=== PATIENT | female | born 1940 | race Caucasian/White ===

== ENCOUNTER 2017-11-15 09:52 | Inpatient (IN) | payer MEDICARE ==
[~2017-11-15] VITALS: Ht 162.6 cm; Wt 94.0 kg
[2017-11-15] VITALS (11 sets, daily range): BP systolic 71–143; BP diastolic 36–71; PULSE 64–82; RESP 9–22; TEMP 97.7–98.2; O2SAT 92–100
[~2017-11-15 09:52] MED LIST: 1-ME1LIQ PO; ALPR1 PO; AMLO10TA2 PO; BACL10TA PO; CITA20TA4 PO; CLON0.2T PO; CLON0.5T PO; DICL75TA PO; DULO1CAP2 PO; FENO145T2 PO; FERR325T18 PO; FURO20TA PO; GABA300C5 PO; HYOS1TAB9 PO; LIOT5 PO; LISI-515 PO; METO50TA PO; MORP1TAB25 PO; OMEGCAP PO; OXYC5 PO; PERC5TAB12 PO; PROBCAP11 PO; PROM25SU8 PO; PROM25TA10 PO; RANI150 PO; RANI150T PO; SERU1POW PO; SYNT112T PO; TRAZ100 PO
[2017-11-15] MEDS ORDERED: Vancomycin Consult Pharmacy 1 EA OTHER SCH (12:45)
[2017-11-15] MEDS ORDERED: CHLORHEXIDINE GLUCONATE 2 % 1 PACK (2 CLOTHS) TOP PRN (12:45)
[2017-11-15] MEDS ORDERED: MAGNESIUM HYDROXIDE SUSP 30 ML CUP PO PRN (12:45)
[2017-11-15] MEDS ORDERED: MISCELLANEOUS NURSING INFORMATION XX SCH (12:45)
[2017-11-15] MEDS ORDERED: SODIUM CHLORIDE 0.9% FLUSH 10 ML FLUSH IV FLUSH PRN (12:45)
[2017-11-15] MEDS ORDERED: RESP: ALBUTEROL 2.5 MG/IPRATROPIUM 0.5 MG NEB (PRN) INH (12:45)
[2017-11-15] MEDS ORDERED: DEXTROSE 50% IN WATER 50 ML VIAL(D50) IV PUSH PRN (12:45)
[2017-11-15] MEDS ORDERED: BISACODYL 10 MG SUPP RECTAL PRN (12:45)
[2017-11-15] MEDS ORDERED: GLUCAGON 1 MG/ML VIAL OTHER PRN (12:45)
[2017-11-15] MEDS ORDERED: SENNOSIDES 8.6 MG TAB PO PRN (12:45)
[2017-11-15] MEDS ORDERED: LACTULOSE SYRUP 20 GM/30 ML CUP PO PRN (12:45)
[2017-11-15] MEDS ORDERED: LIDOCAINE 1%/EPINEPHrine 1:100,000 SOLN 30 ML VIAL ONE (12:51)
--- NOTE | 2017-11-15 13:56 | HHI.HP ---
[facility] Service Critical Care Medicine Primary Care Physician Unknown Admission Diagnosis Diagnosis: (1) Anemia Diagnosis: Principal (2) Hypotension Diagnosis: Principal (3) Acute upper GI bleed Diagnosis: Principal Travel History International Travel<30 Days: No Contact w/Intl Traveler <30 Da: No Sepsis Criteria Severe Sepsis (+one): Hypotension History of Present Illness This is a 67-year-old female that presented to [facility] secondary to coffee- ground emesis 2 days. The patient normally takes diclofenac and occasionally aspirin as needed. The patient initial hemoglobin was noted to be 9.3 . No further episodes of hematemesis in the last 24 hours, Hemoccult studies pending. Patient was noted to be hypotensive the patient was bolused with IV fluids normal saline continued at 125 cc/hour. The patient required initiation of Levophed to maintain a mean arterial pressure greater than 65. Upon admission to ICU the patient was noted to have variable blood pressures and arterial line was placed the patient continues on normal saline 125cc/hr denying abdominal pain. The patient's medical history is significant for hypertension however she is hypotensive and creatinine was noted to be 2.4 unknown baseline, ROC possibly secondary to hypotension. Review of Systems Constitutional: COMPLAINS OF: Fatigue Musculoskeletal: COMPLAINS OF: Joint pain Past Family Social History Allergies: Coded Allergies: adhesive (Unverified Allergy, Severe, Rash, 03/16/17) simvastatin (Unverified Allergy, Severe, 03/16/17) topiramate (Unverified Allergy, Severe, N/V, 03/16/17) Sulfa (Sulfonamide Antibiotics) (Unverified Allergy, Unknown, 03/16/17) Uncoded Allergies: STATINS (Allergy, Severe, N/V, 07/22/11) Past Medical History Hypertension, recent chest cold/pneumonia Past Surgical History Unable to obtain Reported Medications Reviewed Active Ordered Medications See MAR Family History Unable to obtain secondary to patient's lethargy and malaise Social History The patient is , denies EtOH, illicit drug use and smoking Physical Exam Physical Exam GENERAL: This is a well-developed well-nourished female with increased BMI, coffee-ground emesis dry in the circumoral region of face SKIN: Warm and dry. HEAD: Atraumatic. Normocephalic. EYES: Pupils equal and round. No scleral icterus. No injection or drainage. ENT: No nasal bleeding or discharge. Mucous membranes pink and moist. NECK: Trachea midline. No JVD. CARDIOVASCULAR: Normal rate, regular rhythm. RESPIRATORY: No accessory muscle use. Coarse rhonchi auscultated throughout lung field. Breath sounds equal bilaterally. GASTROINTESTINAL: Abdomen soft, non-tender, obese, nondistended. No guarding. Bowel sounds present MUSCULOSKELETAL: Extremities without clubbing, cyanosis, or edema. No obvious deformities. NEUROLOGICAL: GCS 15 .awake and alert. RASS 0. No gross focal/sensory deficits. Follows commands in all 4 extremities. Laboratory Laboratory Tests Test 11/15/17 13:18 Date/Time Source Procedure Growth Status 11/15/17 13:18 Blood Peripheral Aerobic Blood Culture Pending Received 11/15/17 13:18 Blood Peripheral Anaerobic Blood Culture Pending Received Septic Shock Reassessment Septic shock perfusion: reassessment completed Caprini VTE Risk Assessment Caprini VTE Risk Assessment: No/Low Risk (score <= 1) VTE Pharm Contraindication: Hemorrhage Caprini Risk Assessment Model Point Value = 1 Point Value = 2 Point Value = 3 Point Value = 5 Age 41-60 Minor surgery BMI > 25 kg/m2 Swollen legs Varicose veins or History of unexplained or recurrent spontaneous Oral contraceptives or hormone replacement Sepsis (< 1 month) Serious lung disease, including pneumonia (< 1 month) Abnormal pulmonary function Acute myocardial infarction Congestive heart failure (< 1 month) History of inflammatory bowel disease Medical patient at bed rest Age 61-74 Arthroscopic surgery Major open surgery (> 45 min) Laparoscopic surgery (> 45 min) Malignancy Confined to bed (> 72 hours) Immobilizing plaster cast Central venous access Age >= 75 History of VTE Family history of VTE Factor V Leiden Prothrombin [id number] Lupus anticoagulant Anticardiolipin antibodies Elevated serum homocysteine Heparin-induced thrombocytopenia Other congenital or acquired thrombophilia Stroke (< 1 month) Elective arthroplasty Hip, pelvis, or leg fracture Acute spinal cord injury (< 1 month) Prophylaxis Regimen Total Risk Factor Score Risk Level Prophylaxis Regimen 0-1 Low Early ambulation 2 Moderate Order ONE of the following: *Sequential Compression Device (SCD) *Heparin 5000 units SQ BID 3-4 Higher Order ONE of the following medications: *Heparin 5000 units SQ TID *Enoxaparin/Lovenox 40 mg SQ daily (WT < 150 kg, CrCl > 30 mL/min) *Enoxaparin/Lovenox 30 mg SQ daily (WT < 150 kg, CrCl > 10-29 mL/min) *Enoxaparin/Lovenox 30 mg SQ BID (WT < 150 kg, CrCl > 30 mL/min) AND/OR *Sequential Compression Device (SCD) 5 or more Highest Order ONE of the following medications: *Heparin 5000 units SQ TID (Preferred with Epidurals) *Enoxaparin/Lovenox 40 mg SQ daily (WT < 150 kg, CrCl > 30 mL/min) *Enoxaparin/Lovenox 30 mg SQ daily (WT < 150 kg, CrCl > 10-29 mL/min) *Enoxaparin/Lovenox 30 mg SQ BID (WT < 150 kg, CrCl > 30 mL/min) AND *Sequential Compression Device (SCD) Assessment and Plan Problem List: (1) Anemia ICD Code: D64.9 - Anemia, unspecified Status: Acute (2) Hypotension ICD Code: I95.9 - Hypotension, unspecified Status: Acute (3) Acute upper GI bleed ICD Code: K92.2 - Gastrointestinal hemorrhage, unspecified Status: Acute Assessment and Plan Assessment This is a 77-year-old female with chronic history of ingestion of NSAIDs secondary to arthritic pain to include diclofenac and aspirin, that presented to [facility] ED with hematemesis. Patient in the last 24 hours has become hypotensive, and anemic. Admit to ICU. Plan Plan by systems: Neurologic: Chronic pain Neuro checks per ICU protocol Avoid sedative type medication Tylenol every 6 hours as needed Respiratory: Possible pneumonia Maintain O2 sat greater than 92% Chest x-ray reveal left basilar density Empiric antibiotics as shown below 11/15 chest x-ray-left lower lobe opacity Chest x-rays and ABGs when clinically indicated Duo nebs every 4 hours as needed for wheezing Cardiovascular: Hypotension Patient with history of hypertension Hold antihypertensive medications currently for SBP 140mmHg Insert arterial line-we will closely monitor vasopressors may be indicated Renal: [ ] -- Strict I/Os FEN/GI: Upper GI bleed Hematemesis Maintain NPO status GI consulted discussed with Dr. Alistair Farley for nausea Protonix twice daily Bowel regimen Heme/ID: Anemia Leukocytosis Monitor hemoglobin every 6 hours Obtain sputum, blood and urine culture Empiric antibiotics-cefepime vancomycin, and azithromycin Endocrine: Glucose monitoring per ICU protocol -- SSI Prophylaxis: GI Prophylaxis Protonix BID DVT Prophylaxis -- SCDs No chemical DVT prophylaxis in the setting of upper GI bleed Lines: Peripheral IVs 2, right radial arterial line (11/15) Dispo: my billing statement This patient remains critically ill with one or more organ systems which are or may become a threat to life. I have spent in excess of 40 minutes discontinuously in the care and management of this patient. This time is exclusive of procedures, and includes, but is not limited to, evaluation of the patient, review of the medical record, discussions with family, consultants, nursing staff, or respiratory therapy, and documentation in the medical record. Code Status Full Discussed Condition With Dr. Sainz , patient and LUMBER PILER at bedside ([place]) Brigid Membreno MD Nov 15, 2017 13:56
--- NOTE | 2017-11-15 14:00 | PD.PROCEDR ---
Procedure Note Procedure Procedure: Arterial Line Placement Right radial artery Diagnosis: Hypotension Indications: Hypotension Consent: Patient Description of the Procedure: The right wrist was prepped and draped sterilely. 1% lidocaine was used for local anesthesia. The pulse was located and a needle was advanced into the artery. A 20 gauge, 1.34 cm catheter was advanced into the artery using a modified Seldinger technique. The catheter was sutured to the skin and a sterile dressing was applied. The catheter was connected to a pressure transducer and an arterial waveform was noted. There were no immediate complications noted. There was minimal EBL. I personally performed the procedure. Brigid Membreno MD Nov 15, 2017 14:00
--- NOTE | 2017-11-15 14:49 | PD.CONS ---
HPI History of Present Illness This is a 77 year old female who presented with coffee ground emesis that started early this morning. SHe is having some mild epigastric discomfort. She denies black tarry stool, yoana blood in emesis, prior hx gastric ulcers or GIB. She does admit occasional scant BRBPR and cites hx hemorrhoids. She did take diclofenac for back pain but has not had this in 5 months. Per her she takes 2 advil PM nightly. Her last colonoscopy was in [place] with Dr Hernandez and normal per pt. Pt is lethargic and poor historian, hx obtained from EMR and pts at bedside. (Elena Martinez) PFSH Past Medical History back pain neck pain HTN MARGA does not use mask Past Surgical History c section cholecystectomy back surgery neck surgery (Elena Martinez) Coded Allergies: adhesive (Unverified Allergy, Severe, Rash, 03/16/17) simvastatin (Unverified Allergy, Severe, 03/16/17) topiramate (Unverified Allergy, Severe, N/V, 03/16/17) Sulfa (Sulfonamide Antibiotics) (Unverified Allergy, Unknown, 03/16/17) Uncoded Allergies: STATINS (Allergy, Severe, N/V, 07/22/11) Family History unk Social History no toxic habits per pts (Elena Martinez) Review of Systems Gastrointestinal: COMPLAINS OF: Abdominal pain, Hematemesis otherwise noncontributory (Elena Martinez) GI Exam Laboratory Test 11/15/17 11:55 11/15/17 13:18 Lactic Acid Level 0.6 mmol/L Date/Time Source Procedure Growth Status 11/15/17 13:18 Blood Peripheral Aerobic Blood Culture Pending Received 11/15/17 13:18 Blood Peripheral Anaerobic Blood Culture Pending Received Physical Examination HEENT: PERRL; normocephalic; atraumatic; no jaundice. CHEST: CTA, snoring CARDIAC: irr HR ABDOMEN: Soft, obese, nontender; no hepatosplenomegaly; bowel sounds are present in all four quadrants. EXTREMITIES: No clubbing, cyanosis, or edema. SKIN: pale BUNDLE CUTTER: lethargic (Elena Martinez) Assessment and Plan Plan ASSESSMENT - coffee ground emesis - UGIB. daily advil use, was taking diclofenac 5 months ago. had EGD and colonoscopy 3y; EGD found reflux. can recall no abnormal findings on colonoscopy. no prior hx GIB. possibly she has ulcer - anemia - 2/2 above. hgb 9.3, symptomatic. pt hypotensive. - poss PNA, hyptension per [facility] PLAN - EGD when stable, will plan for tomorrow - obtain consent - NPO - monitor HH - transfuse as needed - PPI - further recs to follow pt seen by myself and Dr Sainz and this note is on her behalf (Elena Martinez) Physician Comments seen, examined agree with above ct abdomen/pelvis egd in am unless active bleeding , than will be done on emergency (Jaki Sainz MD) Elena Martinez Nov 15, 2017 14:49 Jaki Sainz MD Nov 15, 2017 16:29
[2017-11-15] MEDS: AZITHROMYCIN INJ 500 MG in SODIUM CHLOR 0.9% 250 ML INJ 250 ML IV SCH (15:13)
[2017-11-15] MEDS: SODIUM CHLOR 0.9% 1000 ML INJ 1,000 ML IV SCH ×2 (15:13→20:23)
[2017-11-15] MEDS ORDERED: DIATRIZOATE MEGLUM/DIATRIZOATE SOD 9 ML CUP PO ONE (17:00)
[2017-11-15] MEDS ORDERED: VANCOMYCIN INJ 1,750 MG in SODIUM CHLORID 0.9% 500 ML INJ 500 ML IV ONE (17:00)
[2017-11-15] MEDS: INSULIN ASPART SUPPLEMENTAL SCALE SQ SCH ×2 (17:00→20:23)
[2017-11-15] MEDS: CEFEPIME INJ 2,000 MG in SODIUM CHLORIDE 0.9% INJ 100 ML IV SCH (17:39)
[2017-11-15] MEDS: ONDANSETRON HCL 4 MG/2 ML VIAL IV PUSH PRN (18:45)
[2017-11-15] MEDS: SODIUM CHLORIDE 0.9% FLUSH 10 ML FLUSH IV FLUSH SCH (20:21)
[2017-11-15] MEDS: PANTOPRAZOLE SODIUM 40 MG VIAL IV PUSH SCH (20:23)
[2017-11-15] MEDS: DOCUSATE SODIUM 50 MG/SENNA 8.6 MG TAB PO SCH (20:23)
[2017-11-15 20:41] LABS: HEMATOCRIT 25.4 % (35.0-46.0); HEMOGLOBIN 8.2 GM/DL (11.6-15.3)
[2017-11-15] MEDS ORDERED: PROPOFOL 1000 MG/100 ML INJ 100 ML IV PRN (22:15)
[2017-11-15] MEDS ORDERED: fentaNYL DRIP 250 ML IV PRN (22:15)
[2017-11-15] MEDS ORDERED: ETOMIDATE 20 MG/10 ML VIAL IV PUSH ONE (22:15)
[2017-11-15] MEDS ORDERED: ROCURONIUM INJ 50 MG/5 ML VIAL IV ONE (22:15)
[2017-11-15] MEDS ORDERED: ETOMIDATE 40 MG/20 ML VIAL ONE (22:17)
[2017-11-15] MEDS ORDERED: PROPOFOL 500 MG/50 ML INJ 50 ML ONE (22:19)
--- NOTE | 2017-11-15 22:44 | PD.PROCEDR ---
Procedure Note Procedure DATE: 11/15/2017 PROCEDURE: Orotracheal intubation INDICATION: Respiratory failure/tachypnea DETAILS OF PROCEDURE The patient was placed in optimal position and preoxygenated with 100% FiO2 via bag valve mask. At the start oxygen saturation was 95%. The patient was administered 20 milligrams etomidate IV and 50 milligrams rocuronium IV. I entered the oropharynx with a size 4 GVL glidescope blade and obtained a grade 2 view of the airway. On single attempt a size 8.0 cuffed endotracheal tube was passed through the vocal cords. Correct tube location was confirmed with end tidal CO2 detector and by auscultating over bilateral lung recinos. The endotracheal tube was secured with adhesive tape at a depth of 24 cm at the lips. The patient was connected to the ventilator. The patient tolerated the procedure well without any apparent complications. Oxygen saturations were maintained greater than 95% all times. STAT chest x-ray pending at time of dictation. Chris Galeana MD Nov 15, 2017 22:44
--- NOTE | 2017-11-15 22:50 | RADRPT ---
EXAM DATE/TIME: 11/15/2017 23:33 [facility] COMPARISON: CHEST SINGLE AP, November 15, 2017, 9:11. INDICATIONS : Evaluate intubation MEDICAL HISTORY : Hypertension. SURGICAL HISTORY : Tubal ligation. Fusion, cervical. ENCOUNTER: Subsequent ACUITY: 1 day PAIN SCORE: Non-responsive. LOCATION: chest FINDINGS: The ET tube and NG tube are well placed. The heart size is normal. There is minimal increased density at the lateral left base. The right lung is clear. Surgical screws are seen in the lower cervical sp ine.. CONCLUSION: Mild patchy consolidation or atelectasis at the lateral left lung base. Cesar Rodriguez MD on November 15, 2017 at 22:47 Board Certified Radiologist. This report was verified electronically.
[2017-11-16] VITALS (18 sets, daily range): BP systolic 83–160; BP diastolic 50–94; PULSE 68–102; RESP 16–20; TEMP 97.5–100.4; O2SAT 94–100
[2017-11-16 01:36] LABS: HEMATOCRIT 23.5 % (35.0-46.0); HEMOGLOBIN 7.9 GM/DL (11.6-15.3)
[2017-11-16 02:27] LABS: BILIRUBIN, URINE NEG (NEG); BLOOD, URINE TRACE (NEG); GLUCOSE,URINE NEG (NEG); KETONE, URINE NEG (NEG); MUCUS URINE FEW /lpf (OCC); NITRITE,URINE NEG (NEG); SQUAMOUS EPITHELIAL CELL URINE 1 /hpf (0-5); URINE COLOR YELLOW (YELLW/STRAW); URINE LEUKOCYTE ESTERASE NEG (NEG)
--- NOTE | 2017-11-16 03:39 | RADRPT ---
EXAM DATE/TIME: 11/16/2017 02:52 [facility] COMPARISON: No previous studies available for comparison. INDICATIONS : Abdominal distention. ORAL CONTRAST: Prescribed oral contrast ingested. RADIATION DOSE: 22.06 CTDIvol (mGy) MEDICAL HISTORY : Hypertension. Hernia, hiatal. SURGICAL HISTORY : Cholecystectomy. ENCOUNTER: Initial ACUITY: 1 day PAIN SCALE: Non-responsive LOCATION: abdomen TECHNIQUE: Volumetric scanning of the abdomen and pelvis was performed. Using automated exposure control and ad justment of the mA and/or kV according to patient size, radiation dose was kept as low as reasonably achievable to obtain optimal diagnostic quality images. DICOM format image data is available electro nically for review and comparison. FINDINGS: LOWER LUNGS: Left base consolidation with associated volume loss noted. LIVER: Homogeneous density without lesion. There is no dilation of the biliary tree. No calcified gallston es. SPLEEN: Normal size without lesion. PANCREAS: Within normal limits. KIDNEYS: Normal in size and shape. There is no mass, stone, or hydronephrosis. ADRENAL GLANDS: Within normal limits. VASCULAR: There is no aortic aneurysm. BOWEL/MESENTERY: Moderate stool throughout the colon. Nonobstructive pattern. No perceptible mass or inflammatory castrejon ges. Normal appendix. ABDOMINAL WALL: Within normal limits. RETROPERITONEUM: There is no lymphadenopathy. BLADDER: Danielle present. REPRODUCTIVE: Within normal limits. INGUINAL: There is no lymphadenopathy or hernia. MUSCULOSKELETAL: Within normal limits for patient age. CONCLUSION: 1. No obstruction or acute inflammatory changes. Moderate stool throughout the colon. 2. Dense consolidative changes of the left lung base with volume loss. Cesar Feliciano MD on November 16, 2017 at 3:35 Board Certified Radiologist. This report was verified electronically.
[2017-11-16] MEDS: CHLORHEXIDINE GLUCONATE 2 % 1 PACK (2 CLOTHS) TOP SCH (04:00)
[2017-11-16 05:35] LABS: AUTOMATED NEUTROPHIL # 7.4 TH/MM3 (1.8-7.7); BASOPHIL % 0.5 % (0.0-2.0); EOSINOPHIL # 0.2 TH/MM3 (0-0.4); EOSINOPHIL % 2.1 % (0.0-4.0); HEMOGLOBIN 7.7 GM/DL (11.6-15.3); LYMPH % 13.4 % (9.0-44.0); LYMPHOCYTE # 1.2 TH/MM3 (1.0-4.8); MEAN CELL VOLUME 87.7 FL (80.0-100.0); MEAN CORPUSCULAR HEMOGLOBIN 29.2 PG (27.0-34.0); MEAN CORPUSCULAR HGB CONC 33.3 % (32.0-36.0); MEAN PLATELET VOLUME 7.1 FL (7.0-11.0); MONOCYTE # 0.4 TH/MM3 (0-0.9); PLATELET COUNT 307 TH/MM3 (150-450); RED BLOOD COUNT 2.63 MIL/MM3 (4.00-5.30); RED CELL DISTRIBUTION WIDTH 15.6 % (11.6-17.2); WHITE BLOOD COUNT 9.3 TH/MM3 (4.0-11.0)
[2017-11-16 05:46] LABS: INTERNATIONAL NORMALIZED RATIO 1.1 RATIO
[2017-11-16] MEDS ORDERED: PROPOFOL 1000 MG/100 ML INJ 100 ML IV PRN (06:15)
[2017-11-16] MEDS: INSULIN ASPART SUPPLEMENTAL SCALE SQ SCH ×4 (08:00→20:48)
[2017-11-16] MEDS: CHLORHEXIDINE 0.12% (ORAL KIT) 15 ML CUP MT SCH ×2 (08:00→20:00)
--- NOTE | 2017-11-16 08:18 | RADRPT ---
EXAM DATE/TIME: 11/16/2017 07:53 [facility] COMPARISON: CT ABDOMEN & PELVIS W/O CONTRAST, November 16, 2017, 2:52. CHEST SINGLE AP, November 15, 2017, 23:33. INDICATIONS : Short of breath, cough, congestion MEDICAL HISTORY : GI bleed SURGICAL HISTORY : section. ENCOUNTER: Subsequent ACUITY: 2 days PAIN SCORE: 0/10 LOCATION: Bilateral chest FINDINGS: A single view of the chest demonstrates a liver of right lung clear. Heart upper limits of normal in size. The cardiomediastinal contours are unremarkable. Osseous structures are intact. CONCLUSION: Left basilar pneumonia. Clarke Araujo MD on November 16, 2017 at 8:15 Board Certified Radiologist. This report was verified electronically.
[2017-11-16] MEDS: SODIUM CHLORIDE 0.9% FLUSH 10 ML FLUSH IV FLUSH SCH ×2 (08:52→20:48)
[2017-11-16] MEDS: PANTOPRAZOLE SODIUM 40 MG VIAL IV PUSH SCH ×2 (08:53→20:48)
[2017-11-16] MEDS: DOCUSATE SODIUM 50 MG/SENNA 8.6 MG TAB PO SCH ×2 (08:54→20:48)
[2017-11-16 08:57] LABS: ALBUMIN 2.9 GM/DL (3.4-5.0); AST (GOT) 22 U/L (15-37); BICARBONATE 26.9 MEQ/L (21.0-32.0); BLOOD UREA NITROGEN 22 MG/DL (7-18); CHLORIDE 107 MEQ/L (98-107); GLOMERULAR FILTRATION RATE 37 ML/MIN (>89); GLUCOSE,RANDOM 90 MG/DL (74-106); SODIUM (NA) 143 MEQ/L (136-145)
[2017-11-16 09:02] LABS: ALKALINE PHOSPHATASE 41 U/L (45-117); ALT (GPT) 16 U/L (10-53); PHOSPHORUS 3.5 MG/DL (2.5-4.9); TOTAL BILIRUBIN ADULT 0.5 MG/DL (0.2-1.0); TOTAL PROTEIN 6.8 GM/DL (6.4-8.2)
[2017-11-16] MEDS: RESP: ALBUTEROL 2.5 MG/IPRATROPIUM 0.5 MG NEB (SCH) INH ×3 (09:07→21:32)
[2017-11-16] MEDS: ACETAMINOPHEN 325 MG TAB PO PRN ×2 (09:41→15:16)
--- NOTE | 2017-11-16 10:03 | HHI.CCPN ---
Subjective Remarks/Hospital Course This is a 67-year-old female that presented to [facility] secondary to coffee- ground emesis 2 days. The patient normally takes diclofenac and occasionally aspirin as needed. The patient initial hemoglobin was noted to be 9.3 . No further episodes of hematemesis in the last 24 hours, Hemoccult studies pending. Patient was noted to be hypotensive the patient was bolused with IV fluids normal saline continued at 125 cc/hour. The patient required initiation of Levophed to maintain a mean arterial pressure greater than 65. Upon admission to ICU the patient was noted to have variable blood pressures and arterial line was placed the patient continues on normal saline 125cc/hr denying abdominal pain. The patient's medical history is significant for hypertension however she is hypotensive and creatinine was noted to be 2.4 unknown baseline, ROC possibly secondary to hypotension. Subjective: 11/16: Overnight the patient was emergently intubated secondary to tactile vomiting and possible aspiration with hypoxia. Please refer to procedure note listed. This a.m. during daily sedation vacation, the patient self extubated. Currently patient on 2 L nasal cannula O2 saturation 99%. Patient alert and oriented. Chest x-ray continued left lower lobe pneumonia. Further inquiry we would Mr. Mckeon revealed patient has had a history of recurrent pneumonias over the last 3 months last hospitalized at [facility] for 8 days recently. ID has been consulted for further recommendations. Patient now hypertensive antihypertensive medications reinitiated after obtaining home medication list. Objective Vital Signs Date Time Temp Pulse Resp B/P (MAP) Pulse Ox O2 Delivery O2 Flow Rate FiO2 11/16/17 09:27 97 Nasal Cannula 2.00 11/16/17 09:05 100.4 102 18 142/73 11/16/17 04:52 40 Intake and Output 11/16/17 11/16/17 11/17/17 08:00 16:00 00:00 Intake Total 147 ml 60 ml Output Total 1150 ml Balance -1003 ml 60 ml Result Diagram: 11/16/17 0510 11/16/17 0758 Other Results Laboratory Tests Test 11/15/17 15:45 11/15/17 23:25 Blood Gas Puncture Site ART LINE ART LINE Blood Gas Patient Temperature 98.6 98.6 Blood Gas HCO3 26 mmol/L (22-26) 22 mmol/L (22-26) Blood Gas Base Excess 0.4 mmol/L (-2-2) -3.2 mmol/L (-2-2) Blood Gas Oxygen Saturation 96 % (90-100) 97 % (90-100) Arterial Blood pH 7.31 (7.380-7.420) 7.31 (7.380-7.420) Arterial Blood Partial Pressure CO2 53 mmHg (38-42) 45 mmHg (38-42) Arterial Blood Partial Pressure O2 121 mmHg (61-120) 405 mmHg (61-120) Arterial Blood Oxygen Content 12.9 Vol % (12.0-20.0) 18.5 Vol % (12.0-20.0) Arterial Blood Carboxyhemoglobin 1.0 % (0-4) 0.8 % (0-4) Arterial Blood Methemoglobin 1.2 % (0-2) 1.4 % (0-2) Blood Gas Hemoglobin 9.4 G/DL (12.0-16.0) 12.8 G/DL (12.0-16.0) Oxygen Delivery Device NASAL CANNULA VENTILATOR Blood Gas Liter Flow 2 L/M Blood Gas Ventilator Setting SEE COMMENTS Blood Gas Inspired Oxygen 100 % Imaging Last Impressions Chest X-Ray 11/16/17 0000 Signed Impressions: Service Date/Time: Thursday, November 16, 2017 07:53 - CONCLUSION: Left basilar pneumonia. Clarke Araujo MD Abdomen/Pelvis CT 11/15/17 0000 Signed Impressions: Service Date/Time: Thursday, November 16, 2017 02:52 - CONCLUSION: 1. No obstruction or acute inflammatory changes. Moderate stool throughout the colon. 2. Dense consolidative changes of the left lung base with volume loss. Cesar Feliciano MD Objective Remarks GENERAL: This is a well-developed well-nourished female with increased BMI, coffee-ground emesis dry in the circumoral region of face SKIN: Warm and dry. HEAD: Atraumatic. Normocephalic. EYES: Pupils equal and round. No scleral icterus. No injection or drainage. ENT: No nasal bleeding or discharge. Mucous membranes pink and moist. NECK: Trachea midline. No JVD. CARDIOVASCULAR: Normal rate, regular rhythm. RESPIRATORY: No accessory muscle use. Coarse rhonchi auscultated throughout lung field. Breath sounds equal bilaterally. GASTROINTESTINAL: Abdomen soft, non-tender, obese, nondistended. No guarding. Bowel sounds present MUSCULOSKELETAL: Extremities without clubbing, cyanosis, or edema. No obvious deformities. NEUROLOGICAL: GCS 15 .awake and alert. RASS 0. No gross focal/sensory deficits. Follows commands in all 4 extremities. Urinary Catheter: Yes Danielle insert reason: Measure Accurate Output Date of Insertion: Nov 15, 2017 A/P Problem List: (1) Anemia ICD Code: D64.9 - Anemia, unspecified Status: Acute (2) Hypotension ICD Code: I95.9 - Hypotension, unspecified Status: Acute (3) Acute upper GI bleed ICD Code: K92.2 - Gastrointestinal hemorrhage, unspecified Status: Acute Assessment and Plan Plan by systems: Neurologic: Chronic pain Osteoarthritis Anxiety Depression Neuro checks per ICU protocol Avoid sedative type medication, patient previously took diclofenac, currently takes Advil 2 tablets daily Tylenol every 6 hours as needed Resume citalopram 20 mg/day Respiratory: Community-acquired pneumonia-left lower lobe recurrent? Possible aspiration Maintain O2 sat greater than 92%, currently on 2 L nasal cannula 99% 6-35-[id number] for possible aspiration and hypoxia followed by self extubation in a.m. Chest x-ray reveal left basilar density Empiric antibiotics as shown below 11/16 chest x-ray-left lower lobe pneumonia Chest x-rays and ABGs when clinically indicated Duo nebs every 4 hours as needed for wheezing Patient provided this a.m. patient with recurrent pneumonia in the past [address] [facility] in [place] for 8 days will obtain medical records Infectious disease consult for recurrent pneumonia Expectorated sputum culture sent Generally patient has a history of pneumonia over the last 3 months with recurrence hospitalized at [facility] for 8 days recently. Plan to obtain medical records from hospital ID consulted for further recommendation Cardiovascular: Hypotension-resolved Patient with history of hypertension Home antihypertensive medications resumed-lisinopril 20 mg/day, amlodipine 10 mg/day Renal: Maintain Danielle patient receiving diuretics -- Strict I/Os FEN/GI: Upper GI bleed Hematemesis Maintain NPO status GI consulted discussed with Dr. Sainz Home medication includes Lasix 20 mg/day continued Zofran for nausea Protonix twice daily Bowel regimen Heme/ID: Anemia Leukocytosis Monitor hemoglobin every 6 hours Obtain sputum, blood and urine culture Empiric antibiotics-cefepime vancomycin, and azithromycin Endocrine: Hypothyroidism Continue levothyroxine 112 mcgs per day Glucose monitoring per ICU protocol -- SSI Prophylaxis: GI Prophylaxis Protonix BID DVT Prophylaxis -- SCDs No chemical DVT prophylaxis in the setting of upper GI bleed Lines: Peripheral IVs 2, right radial arterial line (11/15) Dispo: Level 2 follow-up [facility] when bed comes available Physician Brigid Romero MD Nov 16, 2017 10:02
[2017-11-16] MEDS: LEVOTHYROXINE SODIUM 112 MCG TAB PO SCH (10:32)
[2017-11-16] MEDS: CITALOPRAM HYDROBROMIDE 20 MG TAB PO SCH (10:32)
[2017-11-16] MEDS: LISINOPRIL 20 MG TAB PO SCH (10:33)
[2017-11-16] MEDS: FUROSEMIDE 20 MG TAB PO SCH (10:33)
--- NOTE | 2017-11-16 11:41 | GIPROC ---
[facility] [address] [facility] [employer]. [facility], [address] EGD PROCEDURE REPORT EXAM DATE: 11/16/2017 PATIENT NAME: Eileen Mckeon MR #: [id number] BIRTHDATE: 1940 ATTENDING: Jaki Sainz MD ORDER #: [id number] TRACK LAYING EQUIPMENT OPERATOR: Paris Dahl and Kelle Chavez STATUS: inpatient INDICATIONS: The patient is a 77 yr old female here for an EGD due to gi bleeding PROCEDURE PERFORMED: EGD w/ biopsy MEDICATIONS: None and Per Anesthesia. TOPICAL ANESTHETIC: none CONSENT: The patient understands the risks and benefits of the procedure and understands that these risks include, but are not limited to: sedation, allergic reaction, infection, perforation and/or bleeding. Alternative means of evaluation and treatment include, among others: physical exam, x-rays, and/or surgical intervention. The patient elects to proceed with this endoscopic procedure. medical equipment was checked for proper function. Hand hygiene and appropriate measures for infection prevention was taken. After the risks, benefits and alternatives of the procedure were thoroughly explained, Informed consent was verified, confirmed and timeout was successfully executed by the treatment team. The patient was anesthetized with topical anesthesia and the Pentax EG-[id number] endoscope was introduced through the mouth and advanced to the second portion of the duodenum. Retroflexed views revealed a hiatal hernia The gastroscope was then slowly withdrawn and removed. Duodenum normal-biopsy gastritis antrum-biopsy multiple superficial ulcers in body/fundus-biopsy esophagitis distal esophagus -biopsy 100 cc of bile suctioned-possible gastroparesis. ADVERSE EVENTS: There were no complications. IMPRESSIONS: 1. Duodenum normal-biopsy gastritis antrum-biopsy multiple superficial ulcers in body/fundus-biopsy esophagitis distal esophagus -biopsy 100 cc of bile suctioned-possible gastroparesis 2. Retroflexed views revealed a hiatal hernia RECOMMENDATIONS: 1. Await biopsy results. Biopsy results will not be ready for 7-10 days. If you don't hear from us in two weeks, call our office for biopsy results. 2. Continue PPI 3. Avoid NSAIDS 4. Gastric emptying study-can be done op fu gi in 2 weeks colonoscopy -can be done op for anemia PATIENT CONDITION: stable DISPOSITION: Inpatient REPEAT EXAM: Return 3 months EGD Jaki Sainz MD eSigned: Jaki Sainz MD 11/16/2017 11:41 AM cc: PATIENT NAME: Eileen Mckeon MR#: [id number]
[2017-11-16] MEDS ORDERED: DO NOT ADM ANY ANTICOAGULANT DRUGS PRN (11:45)
[2017-11-16] MEDS ORDERED: *morphine SULFATE 4 MG/ML PERIprocedure ONLY ONE (11:49)
[2017-11-16] MEDS ORDERED: LIDOCAINE HCL 1% PF 5 ML SYRINGE OTHER ONE (12:00)
[2017-11-16] MEDS: VANCOMYCIN INJ 1,750 MG in SODIUM CHLORID 0.9% 500 ML INJ 500 ML IV ONE ×2 (12:00→12:35)
[2017-11-16] MEDS ORDERED: PROPOFOL 200 MG/20 ML AMP IV ONE (12:00)
[2017-11-16] MEDS: ONDANSETRON HCL 4 MG/2 ML VIAL IV PUSH PRN (12:43)
[2017-11-16] MEDS ORDERED: LABETALOL HCL 100 MG/20 ML VIAL IV PUSH ONE (15:15)
[2017-11-16] MEDS: AZITHROMYCIN INJ 500 MG in SODIUM CHLOR 0.9% 250 ML INJ 250 ML IV SCH (15:17)
[2017-11-16] MEDS: CEFEPIME INJ 2,000 MG in SODIUM CHLORIDE 0.9% INJ 100 ML IV SCH (17:33)
[2017-11-16] MEDS: METOPROLOL TARTRATE 50 MG TAB PO SCH (20:48)
[2017-11-16 22:31] LABS: HEMATOCRIT 29.6 % (35.0-46.0)
[2017-11-17] VITALS (16 sets, daily range): BP systolic 165–210; BP diastolic 80–96; PULSE 65–79; RESP 16–20; TEMP 97.8–99.1; O2SAT 97–99
[2017-11-17] MEDS: RESP: ALBUTEROL 2.5 MG/IPRATROPIUM 0.5 MG NEB (SCH) INH ×4 (03:36→20:54)
[2017-11-17] MEDS: CHLORHEXIDINE GLUCONATE 2 % 1 PACK (2 CLOTHS) TOP SCH (04:00)
[2017-11-17 04:26] LABS: AUTOMATED NEUTROPHIL # 11.7 TH/MM3 (1.8-7.7); BASOPHIL % 0.3 % (0.0-2.0); EOSINOPHIL # 0.1 TH/MM3 (0-0.4); EOSINOPHIL % 0.4 % (0.0-4.0); HEMATOCRIT 32.9 % (35.0-46.0); HEMOGLOBIN 10.9 GM/DL (11.6-15.3); LYMPH % 10.5 % (9.0-44.0); LYMPHOCYTE # 1.4 TH/MM3 (1.0-4.8); MEAN CELL VOLUME 88.7 FL (80.0-100.0); MEAN CORPUSCULAR HEMOGLOBIN 29.4 PG (27.0-34.0); MEAN CORPUSCULAR HGB CONC 33.2 % (32.0-36.0); MEAN PLATELET VOLUME 7.9 FL (7.0-11.0); MONOCYTE # 0.4 TH/MM3 (0-0.9); NEUT % 85.8 % (16.0-70.0); PLATELET COUNT 295 TH/MM3 (150-450); RED BLOOD COUNT 3.71 MIL/MM3 (4.00-5.30); RED CELL DISTRIBUTION WIDTH 15.4 % (11.6-17.2); WHITE BLOOD COUNT 13.6 TH/MM3 (4.0-11.0)
[2017-11-17] MEDS ORDERED: cloNIDine HCL 0.1 MG TAB PO ONE ×2 (04:45→23:45)
[2017-11-17] MEDS: LEVOTHYROXINE SODIUM 112 MCG TAB PO SCH (04:51)
[2017-11-17 04:52] LABS: BICARBONATE 25.7 MEQ/L (21.0-32.0); CALCIUM 7.9 MG/DL (8.5-10.1); CREATININE 0.99 MG/DL (0.50-1.00); MAGNESIUM 2.3 MG/DL (1.5-2.5); PHOSPHORUS 3.3 MG/DL (2.5-4.9); RANDOM VANCOMYCIN 14.9 COMMENT
[2017-11-17] MEDS: INSULIN ASPART SUPPLEMENTAL SCALE SQ SCH ×4 (07:37→21:00)
[2017-11-17] MEDS: CHLORHEXIDINE 0.12% (ORAL KIT) 15 ML CUP MT SCH ×2 (08:00→20:00)
[2017-11-17] MEDS: DOCUSATE SODIUM 50 MG/SENNA 8.6 MG TAB PO SCH ×2 (09:14→21:03)
[2017-11-17] MEDS: CITALOPRAM HYDROBROMIDE 20 MG TAB PO SCH (09:15)
[2017-11-17] MEDS: LISINOPRIL 20 MG TAB PO SCH (09:15)
[2017-11-17] MEDS: PANTOPRAZOLE SODIUM 40 MG VIAL IV PUSH SCH ×2 (09:15→21:03)
[2017-11-17] MEDS: FUROSEMIDE 20 MG TAB PO SCH (09:15)
[2017-11-17] MEDS: METOPROLOL TARTRATE 50 MG TAB PO SCH ×2 (09:15→21:03)
[2017-11-17] MEDS: SODIUM CHLORIDE 0.9% FLUSH 10 ML FLUSH IV FLUSH SCH ×2 (09:16→21:00)
--- NOTE | 2017-11-17 11:20 | HHI.PR ---
Subjective Remarks Patient is says she feels better however she is not able to keep down any food. She is on clear liquid diet at this time her nurse she is not tolerating. Still with nausea no vomiting. Constipation. Feels tired denies chest pain or breath. Some of her doctor cough. Objective Vitals Vital Signs Date Time Temp Pulse Resp B/P (MAP) Pulse Ox O2 Delivery O2 Flow Rate FiO2 11/17/17 08:36 99 Nasal Cannula 2.00 11/17/17 08:04 98.1 72 20 195/93 (127) 97 11/17/17 08:00 72 11/17/17 07:00 Nasal Cannula 2.00 100 11/17/17 06:29 165/82 (109) Arterial Line 11/17/17 04:06 65 11/17/17 04:00 97.8 72 20 192/87 (122) 98 11/17/17 00:00 98.0 70 20 169/80 (109) 98 11/17/17 00:00 68 11/16/17 21:00 Nasal Cannula 2.00 11/16/17 20:00 80 11/16/17 18:47 80 11/16/17 17:45 98 Nasal Cannula 2.00 11/16/17 16:03 98 Nasal Cannula 2.00 11/16/17 16:00 98.6 82 20 160/74 (102) 98 11/16/17 14:00 92 11/16/17 12:29 89 11/16/17 12:15 90 16 148/78 (101) 97 Nasal Cannula 2 11/16/17 12:00 86 16 143/77 (99) 97 Nasal Cannula 2 11/16/17 11:45 98.0 88 16 132/65 (87) 97 Nasal Cannula 2 I/O 11/16/17 11/16/17 11/16/17 11/17/17 11/17/17 11/17/17 07:00 15:00 23:00 07:00 15:00 23:00 Intake Total 507 ml 1160 ml 60 ml 500 ml Output Total 1150 ml 425 ml 425 ml 800 ml Balance -643 ml 735 ml -365 ml -300 ml Intake Oral 0 ml 60 ml 500 ml IV Total 507 ml 20 ml Packed Cells 800 ml Blood Product IV Normal Saline Flush 240 ml Other 100 ml Output Urine Total 1100 ml 425 ml 425 ml 800 ml Stool Total 0 ml 0 ml Gastric Drainage Total 50 ml # Bowel Movements 0 Result Diagram: 11/17/17 0400 11/17/17 0400 Imaging Last Impressions Chest X-Ray 11/16/17 0000 Signed Impressions: Service Date/Time: Thursday, November 16, 2017 07:53 - CONCLUSION: Left basilar pneumonia. Clarke Araujo MD Abdomen/Pelvis CT 11/15/17 0000 Signed Impressions: Service Date/Time: Thursday, November 16, 2017 02:52 - CONCLUSION: 1. No obstruction or acute inflammatory changes. Moderate stool throughout the colon. 2. Dense consolidative changes of the left lung base with volume loss. Cesar Feliciano MD Objective Remarks GENERAL: This is a well-developed well-nourished female with increased BMI, coffee-ground emesis dry in the circumoral region of face CARDIOVASCULAR: Normal rate, regular rhythm. RESPIRATORY: No accessory muscle use. Coarse rhonchi auscultated throughout lung field. Breath sounds equal bilaterally. GASTROINTESTINAL: Abdomen soft, non-tender, obese, nondistended. No guarding. Bowel sounds present MUSCULOSKELETAL: Extremities without clubbing, cyanosis, or edema. No obvious deformities. NEUROLOGICAL: GCS 15 .awake and alert. RASS 0. No gross focal/sensory deficits. Follows commands in all 4 extremities. Date of Insertion: Nov 15, 2017 A/P Problem List: (1) Anemia ICD Code: D64.9 - Anemia, unspecified Status: Acute (2) Hypotension ICD Code: I95.9 - Hypotension, unspecified Status: Acute (3) Acute upper GI bleed ICD Code: K92.2 - Gastrointestinal hemorrhage, unspecified Status: Acute Assessment and Plan Neurologic: Chronic pain Osteoarthritis Anxiety Depression Neuro checks per ICU protocol Avoid sedative type medication, patient previously took diclofenac, currently takes Advil 2 tablets daily Tylenol every 6 hours as needed Resume citalopram 20 mg/day Respiratory: Community-acquired pneumonia-left lower lobe recurrent? Possible aspiration Maintain O2 sat greater than 92%, currently on 2 L nasal cannula 99% [id number] for possible aspiration and hypoxia followed by self extubation in a.m. Chest x-ray reveal left basilar density Empiric antibiotics as shown below 11/16 chest x-ray-left lower lobe pneumonia Chest x-rays and ABGs when clinically indicated Duo nebs every 4 hours as needed for wheezing Patient provided this a.m. patient with recurrent pneumonia in the past [address] [facility] in [place] for 8 days will obtain medical records Infectious disease consult for recurrent pneumonia Expectorated sputum culture sent Generally patient has a history of pneumonia over the last 3 months with recurrence hospitalized at [facility] for 8 days recently. Plan to obtain medical records from hospital ID consulted for further recommendation Cardiovascular: Hypotension-resolved Patient with history of hypertension Home antihypertensive medications resumed-lisinopril 20 mg/day, amlodipine 10 mg/day Renal: Maintain Danielle patient receiving diuretics -- Strict I/Os FEN/GI: Upper GI bleed Hematemesis [facility] consulted Home medication includes Lasix 20 mg/day continued Zofran for nausea Protonix twice daily Bowel regimen Heme/ID: Anemia Leukocytosis Monitor hemoglobin every 6 hours Obtain sputum, blood and urine culture Empiric antibiotics-cefepime vancomycin, and azithromycin Endocrine: Hypothyroidism Continue levothyroxine 112 mcgs per day Glucose monitoring per ICU protocol -- SSI Prophylaxis: GI Prophylaxis Protonix BID DVT Prophylaxis -- SCDs No chemical DVT prophylaxis in the setting of upper GI bleed Lines: Peripheral IVs 2, right radial arterial line (11/15) The patient, nurse, at bedside Discharge plan pending improvement by consultants. Patient is on IV antibiotics for aspiration pneumonia, she is on liquid diet bc with nausea, advance diet as tolerated. Ramona Henriquez MD Nov 17, 2017 11:20
[2017-11-17] MEDS: ONDANSETRON HCL 4 MG/2 ML VIAL IV PUSH PRN (11:33)
[2017-11-17 12:40] LABS: HEMATOCRIT 32.3 % (35.0-46.0); HEMOGLOBIN 10.9 GM/DL (11.6-15.3)
[2017-11-17] MEDS: AZITHROMYCIN INJ 500 MG in SODIUM CHLOR 0.9% 250 ML INJ 250 ML IV SCH (13:13)
--- NOTE | 2017-11-17 13:55 | HHI.GIFU ---
Subjective Remarks Pt resting in bed. No bleeding today. No vomiting. c/o hemorrhoids. Pain improving. Does not like the water here. (Elena Martinez) Objective Vitals I&O Vital Signs Date Time Temp Pulse Resp B/P (MAP) Pulse Ox O2 Delivery O2 Flow Rate FiO2 11/17/17 12:00 78 11/17/17 08:36 99 Nasal Cannula 2.00 11/17/17 08:04 98.1 72 20 195/93 (127) 97 11/17/17 08:00 72 11/17/17 07:00 Nasal Cannula 2.00 100 11/17/17 06:29 165/82 (109) Arterial Line 11/17/17 04:06 65 11/17/17 04:00 97.8 72 20 192/87 (122) 98 11/17/17 00:00 98.0 70 20 169/80 (109) 98 11/17/17 00:00 68 11/16/17 21:00 Nasal Cannula 2.00 11/16/17 20:00 80 11/16/17 18:47 80 11/16/17 17:45 98 Nasal Cannula 2.00 11/16/17 16:03 98 Nasal Cannula 2.00 11/16/17 16:00 98.6 82 20 160/74 (102) 98 11/16/17 14:00 92 I/O 11/16/17 11/16/17 11/16/17 11/17/17 11/17/17 11/17/17 07:00 15:00 23:00 07:00 15:00 23:00 Intake Total 507 ml 1160 ml 60 ml 500 ml Output Total 1150 ml 425 ml 425 ml 800 ml Balance -643 ml 735 ml -365 ml -300 ml Intake Oral 0 ml 60 ml 500 ml IV Total 507 ml 20 ml Packed Cells 800 ml Blood Product IV Normal Saline Flush 240 ml Other 100 ml Output Urine Total 1100 ml 425 ml 425 ml 800 ml Stool Total 0 ml 0 ml Gastric Drainage Total 50 ml # Bowel Movements 0 Laboratory Laboratory Tests Test 11/16/17 21:40 11/17/17 04:00 11/17/17 12:33 Hemoglobin 10.0 10.9 10.9 Hematocrit 29.6 32.9 32.3 White Blood Count 13.6 Red Blood Count 3.71 Mean Corpuscular Volume 88.7 Mean Corpuscular Hemoglobin 29.4 Mean Corpuscular Hemoglobin Concent 33.2 Red Cell Distribution Width 15.4 Platelet Count 295 Mean Platelet Volume 7.9 Neutrophils (%) (Auto) 85.8 Lymphocytes (%) (Auto) 10.5 Monocytes (%) (Auto) 3.0 Eosinophils (%) (Auto) 0.4 Basophils (%) (Auto) 0.3 Neutrophils # (Auto) 11.7 Lymphocytes # (Auto) 1.4 Monocytes # (Auto) 0.4 Eosinophils # (Auto) 0.1 Basophils # (Auto) 0.0 CBC Comment AUTO DIFF Differential Comment AUTO DIFF CONFIRMED Platelet Estimate NORMAL Platelet Morphology Comment NORMAL Red Cell Morphology Comment NORMAL Blood Urea Nitrogen 16 Creatinine 0.99 Random Glucose 114 Calcium Level 7.9 Phosphorus Level 3.3 Magnesium Level 2.3 Sodium Level 145 Potassium Level 4.0 Chloride Level 110 Carbon Dioxide Level 25.7 Anion Gap 9 Estimat Glomerular Filtration Rate 55 Random Vancomycin Level 14.9 Date/Time Source Procedure Growth Status 11/15/17 07:58 Blood Peripheral Aerobic Blood Culture - Preliminary NO GROWTH IN 1 DAY Resulted 11/15/17 07:58 Blood Peripheral Anaerobic Blood Culture - Preliminary NO GROWTH IN 1 DAY Resulted 11/16/17 09:40 Sputum Expectorated Sputum Gram Stain - Final Resulted 11/16/17 09:40 Sputum Expectorated Sputum Sputum Culture - Preliminary LIGHT GROWTH NORMAL RESPIRATORY TANIA... Resulted Imaging Last Impressions Chest X-Ray 11/16/17 0000 Signed Impressions: Service Date/Time: Thursday, November 16, 2017 07:53 - CONCLUSION: Left basilar pneumonia. Clarke Araujo MD Abdomen/Pelvis CT 11/15/17 0000 Signed Impressions: Service Date/Time: Thursday, November 16, 2017 02:52 - CONCLUSION: 1. No obstruction or acute inflammatory changes. Moderate stool throughout the colon. 2. Dense consolidative changes of the left lung base with volume loss. Cesar Feliciano MD Physical Exam HEENT: PERRL; normocephalic; atraumatic; no jaundice. CHEST: wheezes CARDIAC: RRR ABDOMEN: Soft,obese,mild diffuse TTP; no hepatosplenomegaly; bowel sounds are present in all four quadrants. EXTREMITIES: No clubbing, cyanosis, or edema. SKIN: Normal; no rash; no jaundice. KID CLUB ATTENDANT: No focal deficits; alert and oriented times three. (Elena Martinez) Assessment and Plan Plan ASSESSMENT - coffee ground emesis - UGIB. daily advil use, was taking diclofenac 5 months ago. had EGD and colonoscopy 3y; EGD found reflux. can recall no abnormal findings on colonoscopy. no prior hx GIB. possibly she has ulcer - anemia - 2/2 above. hgb 9.3, symptomatic. pt hypotensive. - poss PNA, hyptension per CCM 11/17/17 s/p EGD found mult superficial ulcers, gastritis, esophagitis, hiatal hernia, 100cc bile suctioned suggesting gastroparesis pt feeling alix. no vomiting. tolerating clears. c/o hemorrhoids. CT showed moderate amt stool. Hh stable PLAN - await bx - outpt GES - full liquids - monitor HH - transfuse as needed - PPI - daily miralax - anusol pt seen by myself and Dr Sainz and this note is on her behalf (Elena Martinez) Physician Comments seen, examined agree with above avoid nsaids ok to dc home from gi point fu gi in 2 weeks-pt follows with (Jaki Sainz MD) Elena Martinez Nov 17, 2017 13:55 Jaki Sainz MD Nov 17, 2017 17:38
[2017-11-17] MEDS: POLYETHYLENE GLYCOL 17 GM PKG PO SCH (14:52)
[2017-11-17] MEDS: HYDROCORTISONE ACETATE 25 MG SUPP RECTAL SCH ×2 (15:00→21:03)
--- NOTE | 2017-11-17 15:04 | PQ ---
Physician Query Response Document PATIENT: IMTIAZ BOYKIN : 1940 ADMIT DATE: 11/15/2017 11:49 AM DISCH DATE: RESPONDING PROVIDER #: [email or web address] QUERY TEXT: Clarification of Clinical Findings Physician?s Documentation Request This Form is Not a Permanent Document in the Medical Record Pt Name: IMTIAZ BOYKIN MR #: [id number] Payor: MEDICARE Unit/Bed: [address] Adm Date: 11/15/2017 11:49:00 AM Reviewer: Nydia Soria Ext. Query Date: 11/16/2017 2:55:55 PM Clarification of Clinical Findings By submitting this query, we are merely seeking further clarification of documentation to accurately reflect all conditions that you are monitoring, evaluating, treating or that extend the hospitalizati on or utilize additional resources of care. Please utilize your independent clinical judgment when ad dressing the question(s) below. Dear Doctor Brigid Membreno, The patient?s Clinical Indicators include: Please clarify and document your clinical opinion in the progress notes and discharge summary includi ng the definitive and/or presumptive diagnosis (suspected or probable), related to the above clinical findings. Please include clinical findings supporting your diagnosis. Thank you, CDS: Nydia Soria Contact Number: CDS/RN ext. [phone] Room: [facility] Patient Unit: [facility] Acute posthemorrhagic anemia with hematemesis and hypotension POA requiring blood transfusion x 2, se rial labs and continuous dynamic monitoring in an ICU setting Other explanation of clinical findings. Unable to determine (no explanation for clinical findings). The medical record reflects the following clinical findings, treatment, and risk factors. * Clinical Indicators H * Risk Factors GERD Hiatel Hernia gastroparesis * Treatment Transfusion PRBC x 2, IV Pantoprazole, IV titrated vasopressors, serial H PLEASE DOCUMENT ANY ADDITIONAL DIAGNOSES AND/OR SPECIFICITY IN THE PROGRESS NOTES AND/OR DISCHARGE WRIGHT MMARY. Agreed Clinically unable to determine/unknown Disagree with the above request Need to discuss Query created by: Nydia Soria on 11/16/2017 2:55 PM RESPONSE TEXT: Acute blood loss anemia 2/2 gastric ulcers Electronically signed by: Brigid Membreno MD 11/17/2017 3:00 PM
[2017-11-17] MEDS: CEFEPIME INJ 2,000 MG in SODIUM CHLORIDE 0.9% INJ 100 ML IV SCH ×2 (16:00→17:33)
[2017-11-17 16:56] LABS: HEMATOCRIT 33.8 % (35.0-46.0); HEMOGLOBIN 11.2 GM/DL (11.6-15.3)
[2017-11-17] MEDS: VANCOMYCIN INJ 1,750 MG in SODIUM CHLORID 0.9% 500 ML INJ 500 ML IV SCH (17:15)
[2017-11-17] MEDS: hydrALAZINE HCL 10 MG TAB PO PRN (18:25)
[2017-11-17] MEDS: ACETAMINOPHEN 325 MG TAB PO PRN (18:25)
[2017-11-17] MEDS: ENALAPRILAT 2.5 MG/2 ML VIAL IV PUSH PRN (20:50)
[2017-11-18] VITALS (8 sets, daily range): BP systolic 135–198; BP diastolic 67–88; PULSE 61–77; RESP 16–20; TEMP 97.2–99.7; O2SAT 90–97
[2017-11-18 00:28] LABS: HEMATOCRIT 33.3 % (35.0-46.0); HEMOGLOBIN 10.8 GM/DL (11.6-15.3)
[2017-11-18] MEDS: RESP: ALBUTEROL 2.5 MG/IPRATROPIUM 0.5 MG NEB (SCH) INH ×3 (03:44→15:04)
[2017-11-18] MEDS: CHLORHEXIDINE GLUCONATE 2 % 1 PACK (2 CLOTHS) TOP SCH (04:00)
[2017-11-18] MEDS: CEFEPIME INJ 2,000 MG in SODIUM CHLORIDE 0.9% INJ 100 ML IV SCH ×2 (04:59→16:30)
[2017-11-18] MEDS: LEVOTHYROXINE SODIUM 112 MCG TAB PO SCH (05:00)
[2017-11-18] MEDS: ACETAMINOPHEN 325 MG TAB PO PRN ×2 (05:01→12:55)
[2017-11-18 06:57] LABS: HEMATOCRIT 31.3 % (35.0-46.0); HEMOGLOBIN 10.5 GM/DL (11.6-15.3)
[2017-11-18 07:18] LABS: CREATININE 0.9 MG/DL (0.50-1.00)
[2017-11-18] MEDS: CHLORHEXIDINE 0.12% (ORAL KIT) 15 ML CUP MT SCH ×2 (08:00→19:56)
[2017-11-18] MEDS: INSULIN ASPART SUPPLEMENTAL SCALE SQ SCH ×4 (08:00→19:54)
--- NOTE | 2017-11-18 08:51 | HHI.PR ---
Subjective Remarks Patient in bed she was also noted ambulating with PT. She passed walking test and she does not need oxygen at home. Patient is very excited she is to go home today. No fever or chills. Danielle was removed she feels better she urinated after the Danielle was removed. Wants to go home today. No nausea vomiting no diarrhea or constipation. She ate all breakfast today morning. Denies chest pain or shortness of breath. She is not coughing. No fever or chills. Objective Vitals Vital Signs Date Time Temp Pulse Resp B/P (MAP) Pulse Ox O2 Delivery O2 Flow Rate FiO2 11/18/17 07:57 99.0 67 20 198/88 (124) 96 174/82 (112) 11/18/17 04:00 65 11/18/17 04:00 168/84 (112) 11/18/17 04:00 99.2 67 19 97 11/18/17 04:00 Nasal Cannula 2.00 11/18/17 03:47 97 Nasal Cannula 2.00 11/18/17 00:00 Nasal Cannula 2.00 11/18/17 00:00 70 11/18/17 00:00 99.1 68 20 95 11/17/17 23:35 190/90 (123) 11/17/17 21:55 186/82 (116) 11/17/17 20:56 98 2.00 11/17/17 20:00 98.9 75 16 210/96 (134) 98 11/17/17 20:00 Nasal Cannula 2.00 11/17/17 20:00 79 11/17/17 20:00 98.9 75 18 210/96 (134) 11/17/17 16:35 196/94 (128) 11/17/17 16:30 99.1 77 16 204/96 (132) 99 11/17/17 16:00 72 11/17/17 12:04 98.0 70 19 194/92 (126) 98 11/17/17 12:00 78 I/O 11/17/17 11/17/17 11/17/17 11/18/17 11/18/17 11/18/17 07:00 15:00 23:00 07:00 15:00 23:00 Intake Total 500 ml 930 ml 970 ml Output Total 800 ml 1650 ml 1775 ml Balance -300 ml -720 ml -805 ml Intake Oral 500 ml 380 ml 870 ml IV Total 550 ml 100 ml Output Urine Total 800 ml 1650 ml 1775 ml # Bowel Movements 0 2 0 Result Diagram: 11/18/17 0530 11/18/17 0530 Imaging Last Impressions Chest X-Ray 11/16/17 0000 Signed Impressions: Service Date/Time: Thursday, November 16, 2017 07:53 - CONCLUSION: Left basilar pneumonia. Clarke Araujo MD Abdomen/Pelvis CT 11/15/17 0000 Signed Impressions: Service Date/Time: Thursday, November 16, 2017 02:52 - CONCLUSION: 1. No obstruction or acute inflammatory changes. Moderate stool throughout the colon. 2. Dense consolidative changes of the left lung base with volume loss. Cesar Feliciano MD Objective Remarks GENERAL: This is a well-developed well-nourished female with increased BMI, coffee-ground emesis dry in the circumoral region of face CARDIOVASCULAR: Normal rate, regular rhythm. RESPIRATORY: No accessory muscle use. Coarse rhonchi auscultated throughout lung field. Breath sounds equal bilaterally. GASTROINTESTINAL: Abdomen soft, non-tender, obese, nondistended. No guarding. Bowel sounds present MUSCULOSKELETAL: Extremities without clubbing, cyanosis, or edema. No obvious deformities. NEUROLOGICAL: GCS 15 .awake and alert. RASS 0. No gross focal/sensory deficits. Follows commands in all 4 extremities. Date of Insertion: Nov 15, 2017 A/P Problem List: (1) Anemia ICD Code: D64.9 - Anemia, unspecified Status: Acute (2) Hypotension ICD Code: I95.9 - Hypotension, unspecified Status: Acute (3) Acute upper GI bleed ICD Code: K92.2 - Gastrointestinal hemorrhage, unspecified Status: Acute Assessment and Plan Neurologic: Chronic pain Osteoarthritis Anxiety Depression Neuro checks per ICU protocol Avoid sedative type medication, patient previously took diclofenac, currently takes Advil 2 tablets daily Tylenol every 6 hours as needed Resume citalopram 20 mg/day Respiratory: Community-acquired pneumonia-left lower lobe recurrent? Possible aspiration Maintain O2 sat greater than 92%, currently on 2 L nasal cannula 99% [id number] for possible aspiration and hypoxia followed by self extubation in a.m. Chest x-ray reveal left basilar density Empiric antibiotics as shown below 11/16 chest x-ray-left lower lobe pneumonia Chest x-rays and ABGs when clinically indicated Duo nebs every 4 hours as needed for wheezing Patient provided this a.m. patient with recurrent pneumonia in the past 3 months hospitalized at [facility] in [place] for 8 days will obtain medical records Infectious disease consult for recurrent pneumonia Expectorated sputum culture sent Generally patient has a history of pneumonia over the last 3 months with recurrence hospitalized at [facility] for 8 days recently. Plan to obtain medical records from hospital ID consulted for further recommendation Cardiovascular: Hypotension-resolved. Patient was noted with elevated BP she was very happy to go home , she passed O2 walking test. Patient with history of hypertension Home antihypertensive medications resumed-lisinopril 20 mg/day, amlodipine 10 mg/day Vasotec iV and hydralazine prn if SBP> 160s Renal: Maintain Danielle patient receiving diuretics -- Strict I/Os FEN/GI: Upper GI bleed Hematemesis [facility] consulted Home medication includes Lasix 20 mg/day continued Zofran for nausea Protonix twice daily Bowel regimen Heme/ID: Anemia Leukocytosis Monitor hemoglobin every 6 hours Obtain sputum, blood and urine culture Empiric antibiotics-cefepime vancomycin, and azithromycin Endocrine: Hypothyroidism Continue levothyroxine 112 mcgs per day Glucose monitoring per ICU protocol -- SSI Prophylaxis: GI Prophylaxis Protonix BID DVT Prophylaxis -- SCDs No chemical DVT prophylaxis in the setting of upper GI bleed Lines: Peripheral IVs 2, right radial arterial line (11/15) The patient, nurse, at bedside Discharge plan pending improvement by consultants. Patient is on IV antibiotics for aspiration pneumonia Passed walking test and she does not need oxygen at home. Patient is very excited she is to go home today. She ate all breakfast today morning, tolerates food. Patient is discharged home with home health in stable condition to follow-up with PCP and consultants as outpatient Ramona Henriquez MD Nov 18, 2017 08:51
[2017-11-18] MEDS ORDERED: AUGM875T3 PO (08:55)
[2017-11-18] MEDS ORDERED: ANUS25SU RECTAL (08:55)
[2017-11-18] MEDS ORDERED: PANT40TA3 PO (08:55)
[2017-11-18] MEDS ORDERED: LACTCHW3 CHEW (08:55)
--- NOTE | 2017-11-18 08:55 | HHI.DS ---
Discharge Summary Admission Date Nov 15, 2017 at 11:49 Discharge Date: Nov 18, 2017 Admitting Diagnosis (1) Anemia ICD Code: D64.9 - Anemia, unspecified Diagnosis: Principal Status: Acute (2) Hypotension ICD Code: I95.9 - Hypotension, unspecified Diagnosis: Principal Status: Acute (3) Acute upper GI bleed ICD Code: K92.2 - Gastrointestinal hemorrhage, unspecified Diagnosis: Principal Status: Acute Procedures EGD/colonoscopy Brief History - From Admission This is a 67-year-old female that presented to [facility] secondary to coffee- ground emesis 2 days. The patient normally takes diclofenac and occasionally aspirin as needed. The patient initial hemoglobin was noted to be 9.3 . No further episodes of hematemesis in the last 24 hours, Hemoccult studies pending. Patient was noted to be hypotensive the patient was bolused with IV fluids normal saline continued at 125 cc/hour. The patient required initiation of Levophed to maintain a mean arterial pressure greater than 65. Upon admission to ICU the patient was noted to have variable blood pressures and arterial line was placed the patient continues on normal saline 125cc/hr denying abdominal pain. The patient's medical history is significant for hypertension however she is hypotensive and creatinine was noted to be 2.4 unknown baseline, ROC possibly secondary to hypotension. CBC/BMP: 11/18/17 0530 11/18/17 0530 Significant Findings Laboratory Tests Test 11/15/17 11:55 11/15/17 13:18 11/15/17 15:45 11/15/17 20:08 Arterial Blood pH 7.31 (7.380-7.420) Arterial Blood Partial Pressure CO2 53 mmHg (38-42) Arterial Blood Partial Pressure O2 121 mmHg (61-120) Blood Gas Hemoglobin 9.4 G/DL (12.0-16.0) Hemoglobin 8.2 GM/DL (11.6-15.3) Hematocrit 25.4 % (35.0-46.0) Test 11/15/17 23:25 11/16/17 01:20 11/16/17 01:25 11/16/17 05:10 Blood Gas Base Excess -3.2 mmol/L (-2-2) Arterial Blood pH 7.31 (7.380-7.420) Arterial Blood Partial Pressure CO2 45 mmHg (38-42) Arterial Blood Partial Pressure O2 405 mmHg (61-120) Hemoglobin 7.9 GM/DL (11.6-15.3) 7.7 GM/DL (11.6-15.3) Hematocrit 23.5 % (35.0-46.0) 23.0 % (35.0-46.0) Lactic Acid Level 0.3 mmol/L (0.4-2.0) Urine Occult Blood TRACE (NEG) Urine RBC 11 /hpf (0-3) Urine Mucus FEW /lpf (OCC) Red Blood Count 2.63 MIL/MM3 (4.00-5.30) Neutrophils (%) (Auto) 80.0 % (16.0-70.0) Test 11/16/17 07:58 11/16/17 21:40 11/17/17 04:00 11/17/17 12:33 Blood Urea Nitrogen 22 MG/DL (7-18) Creatinine 1.40 MG/DL (0.50-1.00) Albumin 2.9 GM/DL (3.4-5.0) Calcium Level 8.0 MG/DL (8.5-10.1) 7.9 MG/DL (8.5-10.1) Alkaline Phosphatase 41 U/L (45-117) Estimat Glomerular Filtration Rate 37 ML/MIN (>89) 55 ML/MIN (>89) Hemoglobin 10.0 GM/DL (11.6-15.3) 10.9 GM/DL (11.6-15.3) 10.9 GM/DL (11.6-15.3) Hematocrit 29.6 % (35.0-46.0) 32.9 % (35.0-46.0) 32.3 % (35.0-46.0) White Blood Count 13.6 TH/MM3 (4.0-11.0) Red Blood Count 3.71 MIL/MM3 (4.00-5.30) Neutrophils (%) (Auto) 85.8 % (16.0-70.0) Neutrophils # (Auto) 11.7 TH/MM3 (1.8-7.7) Random Glucose 114 MG/DL (74-106) Chloride Level 110 MEQ/L (98-107) Test 11/17/17 16:34 11/18/17 00:14 11/18/17 05:30 Hemoglobin 11.2 GM/DL (11.6-15.3) 10.8 GM/DL (11.6-15.3) 10.5 GM/DL (11.6-15.3) Hematocrit 33.8 % (35.0-46.0) 33.3 % (35.0-46.0) 31.3 % (35.0-46.0) Estimat Glomerular Filtration Rate 61 ML/MIN (>89) Imaging Last Impressions Chest X-Ray 11/16/17 0000 Signed Impressions: Service Date/Time: Thursday, November 16, 2017 07:53 - CONCLUSION: Left basilar pneumonia. Clarke Araujo MD Abdomen/Pelvis CT 11/15/17 0000 Signed Impressions: Service Date/Time: Thursday, November 16, 2017 02:52 - CONCLUSION: 1. No obstruction or acute inflammatory changes. Moderate stool throughout the colon. 2. Dense consolidative changes of the left lung base with volume loss. Cesar Feliciano MD PE at Discharge GENERAL: This is a well-developed well-nourished female with increased BMI, coffee-ground emesis dry in the circumoral region of face CARDIOVASCULAR: Normal rate, regular rhythm. RESPIRATORY: No accessory muscle use. Coarse rhonchi auscultated throughout lung field. Breath sounds equal bilaterally. GASTROINTESTINAL: Abdomen soft, non-tender, obese, nondistended. No guarding. Bowel sounds present MUSCULOSKELETAL: Extremities without clubbing, cyanosis, or edema. No obvious deformities. NEUROLOGICAL: GCS 15 .awake and alert. RASS 0. No gross focal/sensory deficits. Follows commands in all 4 extremities. Hospital Course Neurologic: Chronic pain Osteoarthritis Anxiety Depression Neuro checks per ICU protocol Avoid sedative type medication, patient previously took diclofenac, currently takes Advil 2 tablets daily Tylenol every 6 hours as needed Resume citalopram 20 mg/day Respiratory: Community-acquired pneumonia-left lower lobe recurrent? Possible aspiration Maintain O2 sat greater than 92%, currently on 2 L nasal cannula 99% [id number] for possible aspiration and hypoxia followed by self extubation in a.m. Chest x-ray reveal left basilar density Empiric antibiotics as shown below 11/16 chest x-ray-left lower lobe pneumonia Chest x-rays and ABGs when clinically indicated Duo nebs every 4 hours as needed for wheezing Patient provided this a.m. patient with recurrent pneumonia in the past 3 months hospitalized at [facility] in [place] for 8 days will obtain medical records Infectious disease consult for recurrent pneumonia Expectorated sputum culture sent Generally patient has a history of pneumonia over the last 3 months with recurrence hospitalized at [facility] for 8 days recently. Plan to obtain medical records from hospital ID consulted for further recommendation Patient however improved significantly unexpectedly, change abx to PO. Tolerated food. Blood cx NTD P Cardiovascular: Hypotension-resolved. Patient was noted with elevated BP she was very happy to go home , she passed O2 walking test. Patient with history of hypertension Home antihypertensive medications resumed-lisinopril 20 mg/day, amlodipine 10 mg/day Vasotec iV and hydralazine prn if SBP> 160s Renal: Maintain Danielle patient receiving diuretics -- Strict I/Os FEN/GI: Upper GI bleed Hematemesis [facility] consulted Home medication includes Lasix 20 mg/day continued Zofran for nausea Protonix twice daily Bowel regimen Heme/ID: Anemia Leukocytosis Monitor hemoglobin every 6 hours Obtain sputum, blood and urine culture Empiric antibiotics-cefepime vancomycin, and azithromycin Endocrine: Hypothyroidism Continue levothyroxine 112 mcgs per day Glucose monitoring per ICU protocol -- SSI Prophylaxis: GI Prophylaxis Protonix BID DVT Prophylaxis -- SCDs No chemical DVT prophylaxis in the setting of upper GI bleed Lines: Peripheral IVs 2, right radial arterial line (11/15) The patient, nurse, at bedside Discharge plan pending improvement by consultants. Patient is on IV antibiotics for aspiration pneumonia Passed walking test and she does not need oxygen at home. Patient is very excited she is to go home today. She ate all breakfast today morning, tolerates food. Patient improved fast unexpectedly. Patient is discharged home with home health in stable condition to follow-up with PCP and consultants as outpatient Pt Condition on Discharge: Stable Discharge Disposition: Disch w/ Home Health Serv Discharge Time: > 30 minutes Discharge Instructions DIET: Follow Instructions for: Heart Healthy Diet Activities you can perform: Regular-No Restrictions Follow up Referrals: Appointment for Follow Up @ GASTROENTEROLOGY with DR. HUA [facility] - 2 Weeks PCP Follow-up - 2-3 Days PCP Follow-up @ [facility] with DR. BURR [facility]/CORRECTION/ with [facility] New Medications: Amoxicillin-Clavulanate (Augmentin) 875-125 Mg Tab 1 TAB PO BID for Infection, #14 TAB 0 Refills Lactobacillus Acidophilus (Lactinex) 1 Chew 1 TAB CHEW DAILY for Nutritional Supplement, #30 TAB 0 Refills Pantoprazole (Pantoprazole) 40 Mg Tab 40 MG PO DAILY for Reflux, #30 TAB 0 Refills Hydrocortisone Supp (Anusol-Hc Supp) 25 Mg Supp 25 MG RECTAL BID for hemorrhoids , #20 SUPP Continued Medications: Amlodipine (Amlodipine) 10 Mg Tab 10 MG PO DAILY for Blood Pressure Management, #30 TAB 0 Refills Baclofen (Baclofen) 10 Mg Tab 10 MG PO TID PRN for MUSCLE SPASM, TAB 0 Refills Citalopram (Citalopram) 20 Mg Tab 20 MG PO DAILY for Control Depression, #30 TAB 0 Refills Clonazepam (Clonazepam) 0.5 Mg Tab 0.5 MG PO BID PRN for ANXIETY, #60 TAB 0 Refills Clonidine (Clonidine) 0.2 Mg Tab 0.2 MG PO TID for Blood Pressure Management, #60 TAB [address] (Diclofen[address] Sodium DR) 75 Mg Tabdr 75 MG PO BID, #60 TAB [address] (Duloxetine DR) 30 Mg Capdr 30 MG PO DAILY, #30 CAP 0 Refills Fenofibrate (Fenofibrate) 145 Mg Tab 145 MG PO DAILY, #30 TAB 0 Refills Ferrous Sulfate (Ferrous Sulfate) 325 Mg (65 Mg Iron) Tablet 325 MG PO BIDPC for Nutritional Supplement, #60 TAB 0 Refills Fish Oil-Cholecalciferol ([place]-3 Fish Oil/Vitamin) 1,000-1,000 Mg Cap 1 CAP PO DAILY for Nutritional Supplement, CAP 0 Refills Furosemide (Furosemide) 20 Mg Tab 20 MG PO DAILY, #30 TAB 0 Refills Gabapentin (Gabapentin) 300 Mg Cap 300 MG PO TID, #90 CAP 0 Refills Hyoscyamine (Hyoscyamine) 0.125 Mg Tab 0.125 MG PO Q6H for Gastrointestinal disorders, TAB 0 Refills Levothyroxine (Synthroid) 112 Mcg Tab 112 MCG PO DAILY for Thyroid, #30 TAB 0 Refills Lisinopril (Lisinopril) 20 Mg Tab 20 MG PO DAILY, #30 TAB 0 Refills Metoprolol Tartrate (Metoprolol Tartrate) 50 Mg Tab 50 MG PO BID, #60 TAB 0 Refills Morphine ER (Morphine ER) 30 Mg Tab 30 MG PO TID for Pain Management, TAB 0 Refills Promethazine (Phenergan) 25 Mg Tablet 25 MG PO Q6H PRN for NAUSEA OR VOMITING, TAB 0 Refills Ranitidine (Ranitidine) 150 Mg Tab 150 MG PO BID for Heartburn Management, #60 TAB 0 Refills Ramona Henriquez MD Nov 18, 2017 08:55
[2017-11-18] MEDS: SODIUM CHLORIDE 0.9% FLUSH 10 ML FLUSH IV FLUSH SCH ×2 (09:00→19:56)
[2017-11-18] MEDS: POLYETHYLENE GLYCOL 17 GM PKG PO SCH (09:00)
[2017-11-18] MEDS: LISINOPRIL 20 MG TAB PO SCH (09:23)
[2017-11-18] MEDS: PANTOPRAZOLE SODIUM 40 MG VIAL IV PUSH SCH ×2 (09:23→19:56)
[2017-11-18] MEDS: CITALOPRAM HYDROBROMIDE 20 MG TAB PO SCH (09:23)
[2017-11-18] MEDS: FUROSEMIDE 20 MG TAB PO SCH (09:24)
[2017-11-18] MEDS: METOPROLOL TARTRATE 50 MG TAB PO SCH ×2 (09:24→19:56)
[2017-11-18] MEDS: DOCUSATE SODIUM 50 MG/SENNA 8.6 MG TAB PO SCH ×2 (09:24→19:56)
[2017-11-18] MEDS: HYDROCORTISONE ACETATE 25 MG SUPP RECTAL SCH ×2 (09:35→19:54)
--- NOTE | 2017-11-18 09:38 | HHI.FF ---
Face to Face Verification Diagnosis: (1) Hypertension (2) Pneumonia (3) Upper GI bleed (4) Esophagitis (5) Hiatal hernia (6) Gastritis (7) Hemorrhoids (8) Gastroparesis (9) Bleeding stomach ulcer Physical Therapy Order: Evaluate and Treat Home Health Nursing Order: Medical education Signs/symptoms of disease process Medication education-adverse effect Nursing assessment with vital signs I have seen patient Eileen Mckeon on 11/18/17. My clinical findings support the need for the requested home health care services because: Ltd mobility - disease progression I certify that my clinical findings support that this patient is homebound because: Post-op weakness Ramona Henriquez MD Nov 18, 2017 09:38
[2017-11-18] MEDS: ONDANSETRON HCL 4 MG/2 ML VIAL IV PUSH PRN (13:35)
[2017-11-18] MEDS: ENALAPRILAT 2.5 MG/2 ML VIAL IV PUSH PRN (13:42)
[2017-11-18] MEDS: AZITHROMYCIN INJ 500 MG in SODIUM CHLOR 0.9% 250 ML INJ 250 ML IV SCH (13:49)
[2017-11-18] MEDS ORDERED: hydrALAZINE HCL 10 MG TAB PO PRN (14:45)
[2017-11-18] MEDS: hydrALAZINE HCL 10 MG TAB PO PRN (15:06)
[2017-11-18] MEDS: VANCOMYCIN INJ 1,750 MG in SODIUM CHLORID 0.9% 500 ML INJ 500 ML IV SCH (18:27)
[2017-11-19] MEDS ORDERED: PHARMACY ORDERED LAB ONE (16:45)
== END 2017-11-18 20:58 | disposition home health service (06) | DRG 377 ==
LOC: NEDDLT 09:52 → HIMW 11:49 → N04A 11-16 15:45
PROVIDERS: ADMIT Hospitalist; ATTEND Hospitalist
PROC: 5A1935Z Respiratory Ventilation, Less than 24 Consecutive Hours (ICD-10-PCS; 2017-11-15)
PROC: 4A133B3 Monitoring of Arterial Pressure, Pulmonary, Percutaneous Approach (ICD-10-PCS; 2017-11-15)
PROC: 0BH17EZ Insertion of Endotracheal Airway into Trachea, Via Natural or Artificial Opening (ICD-10-PCS; 2017-11-15)
PROC: 0DB78ZX Excision of Stomach, Pylorus, Via Natural or Artificial Opening Endoscopic, Diagnostic (ICD-10-PCS; 2017-11-16)
PROC: 0DB38ZX Excision of Lower Esophagus, Via Natural or Artificial Opening Endoscopic, Diagnostic (ICD-10-PCS; 2017-11-16)
PROC: 30233N1 Transfusion of Nonautologous Red Blood Cells into Peripheral Vein, Percutaneous Approach (ICD-10-PCS; 2017-11-16)
PROC: 0DB98ZX Excision of Duodenum, Via Natural or Artificial Opening Endoscopic, Diagnostic (ICD-10-PCS; principal; 2017-11-16 11:15)
DX: K25.0 Acute gastric ulcer with hemorrhage (principal); J18.9 Pneumonia, unspecified organism; J69.0 Pneumonitis due to inhalation of food and vomit; D62 Acute posthemorrhagic anemia; I95.9 Hypotension, unspecified; D72.829 Elevated white blood cell count, unspecified; G89.29 Other chronic pain; I10 Essential (primary) hypertension; G47.33 Obstructive sleep apnea (adult) (pediatric); M19.90 Unspecified osteoarthritis, unspecified site; F41.9 Anxiety disorder, unspecified; F32.9 Major depressive disorder, single episode, unspecified; E03.9 Hypothyroidism, unspecified; R09.02 Hypoxemia; K29.70 Gastritis, unspecified, without bleeding; K59.00 Constipation, unspecified; Z87.01 Personal history of pneumonia (recurrent); Z79.899 Other long term (current) drug therapy
CPT/HCPCS: 31500; 36430; 36556; 71045; 74019; 74176; 80048; 80053; 80202; 81001; 82272; 82565; 82805; 82948; 83605; 83735; 83880; 84100; 84484; 85014; 85018; 85025; 85610; 85730; 86850; 86900; 86901; 86920; 87040; 87070; 87205; 87641; 88305; 88312; 94002; 94003; 94618; 94640; 94664; 96361; 96365; 96375; C9113; J0456; J0692; J0696; J2270; J2405; J3010; J3370; J7030; J7040; J7050; P9016; Q9963